=== PATIENT | female | born 1995 | race Caucasian/White ===

== ENCOUNTER 2019-05-27 09:23 | Day surgery (SDC) | payer BC, OTHER ==
[2019-05-27] VITALS (15 sets, daily range): BP systolic 107–127; BP diastolic 52–73; PULSE 61–98; RESP 10–20; Ht 160 cm; Wt 71.4 kg
[~2019-05-27] VITALS: Ht 160 cm; Wt 71.4 kg
[~2019-05-27 09:23] MED LIST: HYDROCODONE/APAP (5/325) TAB PO PRN
[2019-05-27] MEDS ORDERED: OXYMETAZOLINE 0.05% NASAL SPRAY (15 ML) NASAL ONE (11:14)
[2019-05-27] MEDS ORDERED: LIDOCAINE 1%/EPI 30 ML INJ ONE (11:14)
[2019-05-27] MEDS ORDERED: FENTAnyl 50 MCG/ML VIAL ONE (11:23)
[2019-05-27] MEDS ORDERED: METOCLOPRAMIDE 10 MG INJ IV PRN (11:30)
[2019-05-27] MEDS ORDERED: HYDROmorphONE 1 MG/5 ML IV SYRINGE IV PRN ×2 (11:30)
[2019-05-27] MEDS ORDERED: DIPHENHYDRAMINE 50 MG INJ IV PRN (11:30)
[2019-05-27] MEDS ORDERED: FENTAnyl 50 MCG/ML VIAL IV PRN ×2 (11:30)
[2019-05-27] MEDS ORDERED: MEPERIDINE 25 MG INJ IV PRN (11:30)
[2019-05-27] MEDS ORDERED: ALBUTEROL 0.083% (NEB) 2.5 MG/3 ML AMP HHN PRN (11:30)
[2019-05-27] MEDS ORDERED: ONDANSETRON 4 MG INJ IV PRN (11:30)
[2019-05-27] MEDS ORDERED: ROCURONIUM 50 MG INJ ONE (12:11)
[2019-05-27] MEDS ORDERED: PROPOFOL 20 ML ONE (12:11)
[2019-05-27] MEDS ORDERED: LIDOCAINE 100 MG SYRINGE ONE (12:11)
[2019-05-27] MEDS ORDERED: SUCCINYLCHOLINE CHLORIDE 100 MG/5 ML SYG IV ONE (12:11)
[2019-05-27] MEDS ORDERED: SUGAMMADEX SODIUM 200 MG/2 ML VIAL IV ONE (12:11)
== END 2019-05-27 16:15 | disposition home or self-care (01) ==
LOC: SDS 09:23
PROVIDERS: ATTEND Otolaryngology
DX: J34.2 Deviated nasal septum (principal); J34.3 Hypertrophy of nasal turbinates
CPT/HCPCS: 30140; 30520; 84703; 88300; J1170; J2001; J2405; J3010; Z7512; Z7610